=== PATIENT | male | born 1955 | race Caucasian/White ===

== ENCOUNTER 2021-06-18 15:35 | Emergency (ER) | payer OTHER ==
[~2021-06-18] VITALS: Ht 175.3 cm; Wt 70.3 kg
[~2021-06-18 15:35] MED LIST: COZAAR50 MG PO
[2021-06-18] MEDS ORDERED: HYDRODIURIL12.5 MG PO (16:03)
[2021-06-18] MEDS ORDERED: SYNTHROID50 MCG PO (16:03)
== END 2021-06-18 21:00 | disposition home or self-care (01) ==
LOC: ER 15:35
DX: I10 Essential (primary) hypertension (principal)

== ENCOUNTER 2024-07-02 23:57 | Emergency (ER) | payer OTHER ==
[~2024-07-02] VITALS: Ht 175.3 cm; Wt 79.4 kg
[~2024-07-02 23:57] MED LIST changes: +HYDRODIURIL12.5 MG PO; +SYNTHROID50 MCG PO
[2024-07-03] MEDS ORDERED: GLUMETZA500 MG PO (01:04)
== END 2024-07-03 | disposition left against medical advice (07) ==
LOC: ER 23:59
DX: Z53.21 Procedure and treatment not carried out due to patient leaving prior to being seen by health care provider (principal)